=== PATIENT | female | born 1965 | race Caucasian/White ===

== ENCOUNTER 2016-10-18 07:00 | Day surgery (SDC) | payer OTHER ==
[~2016-10-18] VITALS: Ht 172.7 cm; Wt 109.3 kg
[~2016-10-18 07:00] MED LIST: COMPLETE ALLERG25 MG PO; EXCEDRIN EXTRA1 EAC1 PO; IBUPROFEN200 M1 PO; PHENTERMINE H37.5 MG PO; RANITIDINE HCL150 M1 PO; VICKS NYQUIL C236 ML PO
--- NOTE | 2016-10-18 10:12 | NUR ---
10/18/16 1012 Sulema Drosey 1006 PATIENT ARRIVES TO PACU AWAKE, BUT DROWSY. RESP EVEN AND UNLABORED. MASK AT 6 LITERS.
--- NOTE | 2016-10-18 10:39 | NUR ---
PT IS BACK TO DS FROM PACU. PT HAS NO C/O'S OF PAIN OR NAUSEA. WATER, POP, AND CRACKERS ARE PROVIDED AND AT THE BEDSIDE, SHE IS EATING AND TOLERATING SIPS OF FLUID WELL. CALL LIGHT IS WITHIN REACH. WILL REASSESS WITHIN THE HOUR. NO OTHER C/O'S AT THIS TIME.
[2016-10-18] MEDS ORDERED: NORCO 5-325 TA1 EACH PO (10:50)
[2016-10-18] MEDS ORDERED: IBUPROFEN800 MG PO (10:51)
--- NOTE | 2016-10-18 12:50 | NUR ---
LE 1140: PT UP TO BATHROOM AND ABLE URINATE 400ML OF RED URINE WITH A BLOOD CLOT IN THE HAT.
--- NOTE | 2016-10-18 14:05 | NUR ---
PT RESTING IN BED, ALERT AD ORIENTED. SHE SEEMED PREPARED, HAD FEW QUESTIONS, JUST WAS READY TO HAVE PROCEDURE OVER WITH. DAVE WILL COME TO PICK HER UP. PT REQUESTED PRAYER, WILL FOLLOW NEEDED
--- NOTE | 2016-11-14 12:25 | OR ---
[facility] [address] [place] [id number] Signed DATE OF SERVICE: 10/18/2016 PREOPERATIVE DIAGNOSES: Abnormal uterine bleeding. Fibroid uterus. Endometrial polyp. Perimenopause. POSTOPERATIVE DIAGNOSES: Abnormal uterine bleeding. Submucous fibroid. Endometrial polyps. Perimenopause. PROCEDURES PERFORMED: Hysteroscopic myomectomy. Hysteroscopic polypectomy. Dilation and curettage. SURGEON: Yasmin Penaloza DO. ANESTHESIA: General. ESTIMATED BLOOD LOSS: 30 mL. SPECIMENS: Endometrial curettings of a submucosal fibroid and polyp. FINDINGS: Normal external genitalia. Enlarged cervix with nabothian cyst and descensus to 1 cm above the introitus. Thickened appearing endometrium with endometrial polyp and submucosal fibroid noted on the left posterior wall of the uterus. The patient states that she had been previously diagnosed with a uterine septum. There does not appear to be a significant septum on exam today. Submucosal fibroid does appear to be resected in total. COMPLICATIONS: None. INDICATION: Ms. DelC id is a pleasant 51-year-old, G2, P2-0-0-3, white perimenopausal female who Electronically Signed By: YASMIN PENALOZA DO 11/14/16 1225 PATIENT NAME: CHRISTINA DEL CID OPERATIVE REPORT DATE OF : 63 PHYSICIAN: YASMIN PENALOZA DO REPORT #: [id number] REPORT IS CONFIDENTIAL AND NOT TO BE RELEASED WITHOUT AUTHORIZATION [facility] [address] [facility] [place] [place] [address] Signed presents with abnormal uterine bleeding. She also had an episode of pain. Ultrasound was performed that demonstrated a 14-cm retroflexed uterus with multiple fibroids and thickened endometrium suggestive of intracavitary polyps and fibroid. Pain is most consistent with a degenerating fibroid. The patient was consented for hysteroscopy, D and C, and possible polypectomy with possible myomectomy. Risks, benefits, and alternatives discussed in detail with the patient. The patient understands and wished to proceed with the procedure. TECHNIQUE: The patient was taken to the operating room. Time-out was performed confirming correct patient, correct procedure. General anesthesia was adequately established. The patient was prepped and draped in the dorsal lithotomy position with feet in Yellofin stirrups. ICPs were on and running and no preop antibiotics or heparin were indicated per skip protocol. A weighted speculum was placed in the vagina and the anterior lip of the cervix was grasped with a single-tooth tenaculum. The cervix was gently dilated using Hegar dilators. The cervix was noted to be enlarged with nabothian cyst and descensus was noted to approximately 1 cm above the introitus. After dilation, operative hysteroscope was placed into the cervical os and advanced under direct visualization into the uterine cavity. This was gently advanced until the fundus was noted. The patient was currently on her menstrual cycle and moderate amount of clot was noted in the uterine cavity. This was gently cleared with hysteroscopic fluid until good visualization of the cavity was obtained. Bilateral tubal ostia were identified and multiple small endometrial polyps with thickened endometrium were noted. Polypectomy was then performed with a MyoSure Lite device and e n dometrial curettings were also obtained. On the posterior wall of the uterus just left of midline, a submucosal fibroid was noted and this was resected apparently in total. Approximate diameter of this fibroid was 1.5-2 cm. The remainder of the endometrium was resected and the uterine cavity appears normal. The hysteroscope was withdrawn and deficit was noted at 1035 mL. Single-tooth tenaculum was removed and a small amount of bleeding was noted from the tenaculum site. This was made hemostatic with 2 fvsqri-yw-jaucup of 0 chromic. Good hemostasis was achieved and the patient was taken to the PACU in good and stable condition. Sponge, needle, and instrument count was correct x2 at the end of the procedure. Yasmin Penaloza DO JDW/Modl Electronically Signed By: YASMIN PENALOZA DO 11/14/16 1225 PATIENT NAME: CHRISTINA DEL CID OPERATIVE REPORT DATE OF : 63 PHYSICIAN: YASMIN PENALOZA DO REPORT #: [id number] REPORT IS CONFIDENTIAL AND NOT TO BE RELEASED WITHOUT AUTHORIZATION [address] [place] [address] Signed /[id number] Electronically Signed By: YASMIN PENALOZA DO 11/14/16 1225 PATIENT NAME: NEHEMIASCHRISTINA OPERATIVE REPORT DATE OF : 63 PHYSICIAN: YASMIN PENALOZA DO REPORT #: [id number] REPORT IS CONFIDENTIAL AND NOT TO BE RELEASED WITHOUT AUTHORIZATION
== END 2016-10-18 11:50 | disposition home or self-care (01) ==
LOC: DS 07:00
PROVIDERS: Obstetrics & Gynecology
PROC: 0UDB8ZX Extraction of Endometrium, Via Natural or Artificial Opening Endoscopic, Diagnostic (ICD-10-PCS; principal; 2016-10-18 08:30)
PROC: 0UB98ZZ Excision of Uterus, Via Natural or Artificial Opening Endoscopic (ICD-10-PCS; 2016-10-18 08:30)
DX: D25.0 Submucous leiomyoma of uterus (principal); N84.0 Polyp of corpus uteri; D64.9 Anemia, unspecified; J30.2 Other seasonal allergic rhinitis; Z98.890 Other specified postprocedural states
CPT/HCPCS: 00952; J1885; J2405; J2704; J3010; J7120

== ENCOUNTER 2018-09-04 07:10 | Day surgery (SDC) | payer OTHER ==
[~2018-09-04] VITALS: Ht 172.7 cm; Wt 111.1 kg
[~2018-09-04 07:10] MED LIST changes: +IBUPROFEN800 MG PO; +NORCO 5-325 TA1 EACH PO; +PROTONIX20 MG PO
[2018-09-04] MEDS ORDERED: Z-SLEEP25 MG PO (07:29)
--- NOTE | 2018-09-04 09:30 | NUR ---
HAS RETURNED FROM XRAY. IV RECONNECTED AND RUNS WELL. WARM BLANKET ON AND HAS BEEN TO BR.
--- NOTE | 2018-09-04 12:56 | NUR ---
09/04/18 1256 Sheets,Sadny 1250 PT ARRIVED TO PACU ON 8L VIA MASK, ORAL AIRWAY IN PLACE AND RESP EVEN AND UNLABORED. 1251 PT WOKE AND REACHED FOR HER FACE, PT ABLE TO FOLLOW COMMANDS AND ORAL AIRWAY IS REMOVED. PT REORIENTED TO PACU AND PT DENIES PAIN. PT BACK TO SLEEP.
[2018-09-04] MEDS ORDERED: OXYCODON-ACETA1 EAC2 PO (13:11)
[2018-09-04] MEDS ORDERED: IBUPROFEN600 MG PO (13:11)
[2018-09-04] MEDS ORDERED: TYLENOL325 MG PO (13:12)
--- NOTE | 2018-09-04 14:07 | NUR ---
PATIENT BACK IN DAY SURGERY ROOM FROM PACU. C/O PAIN 08/18. GIVEN PUDDING TO EAT. MEDICATED FOR PAIN WITH PO PERCOCET. VS CHECKED. LEFT BREAST/AXILLA DRESSING CDI. JAYLA DRAIN IN PLACE AND PATENT. IV SITE WNL. SCDs ON. ICE WATER PLACED AT BEDSIDE. CALL LIGHT WITHIN REACH.
--- NOTE | 2018-09-04 16:23 | NUR ---
1605: DR. WEST NOTIFIED OF JAYLA DRAIN OUTPUT. PATIENT EDUCATED ON HOW TO STRIP JAYLA DRAIN TUBING. 1615: PATIENT DISCHARGED TO HOME VIA WHEELCHAIR WITH .
--- NOTE | 2018-09-05 15:35 | OR ---
[facility] [address] [place], [place] [address] Signed DATE OF OPERATION: 09/04/2018 SURGEON: Allen West MD PREOPERATIVE DIAGNOSES: 1. Left upper outer quadrant infiltrating ductal breast carcinoma. 2. Increased radionuclide uptake inferior to the areolar margin, left side in addition to left axilla. POSTOPERATIVE DIAGNOSES: 1. Upper outer quadrant infiltrating ductal breast carcinoma, completely excised, clinically negative margin. 2. Positive axillary sentinel lymph nodes. 3. Minimal true uptake of parenchyma of left breast 6 o'clock position. PROCEDURES PERFORMED: 1. Injection of methylene blue for sentinel lymph node identification. 2. Left breast soft tissue mass excision for positive radionuclide uptake. 3. Left deep axillary sentinel lymph node biopsy. 4. Left partial mastectomy. 5. Left completion axillary dissection for frozen pathology positive metastatic disease to the left axilla. ANESTHESIA: General LMA; James Pruitt CRNA. INDICATION: This 53-year-old woman is a patient of Dr. Yasmin Penaloza and Dr. Kindra Gil. She has family history of breast cancer in her mother at the same age. She recently was noted to have a palpable mass in the upper outer aspect of the left breast. She had undergone a mammogram a year before in [place], which was normal. Review shows it to have been negative also. A repeat mammogram in this year showed an abnormality concordant to the palpable breast mass, which was not present a year ago either. Biopsy confirmed infiltrating ductal breast carcinoma. Ultrasound showed some suspicion of positive lymph node of axilla. She is admitted at this time to undergo left sentinel lymph node biopsy and partial mastectomy for a primary cancer. She understands that if frozen pathology confirms malignancy of axillary lymph nodes, completion axillary dissection will be undertaken. Additionally, there was significant uptake inferior to the central portion of the left Electronically Signed By: ALLEN WEST MD 09/05/18 1535 PATIENT NAME: CHRISTINA DEL CID OPERATIVE REPORT DATE OF : 63 REPORT #: [id number] PHYSICIAN: ALLEN WEST MD PCP: KENNEDI ARGUELLO DO REPORT IS CONFIDENTIAL AND NOT TO BE RELEASED WITHOUT AUTHORIZATION [facility] [address] [place], [place] [address] Signed areola a rather atypical finding, for which additional excision would be undertaken on the possibility of an intramammary lymph node. The patient understands well the risks of bleeding, infection, cosmetic deformity, already agreed upon, plan for radiation therapy to the remaining breast, possible need for chemotherapy depending on axillary lymph node status, as well as the less likely possibility of arm edema or other problems. She understands that and she wished to proceed. FINDINGS: Good uptake was noted by radionuclide injection to the left axilla. There was a hot spot inferior to the left areola not concordant to the areolar injection site itself. Excision of that tissue did show radionuclide uptake, but no obvious abnormality otherwise. There was no methylene blue uptake there. As regard to the sentinel lymph nodes, there were palpably suspicious nodes and one sentinel lymph node and another non-sentinel node were sent for initial pathology confirming infiltrating ductal carcinoma and a non-sentinel node. An additional large grossly positive and radionuclide and methylene blue dye avid lymph node was also noted. Completion of axillary dissection was undertaken. A level 3 lymphadenectomy was accomplished. There were no complications. DESCRIPTION OF PROCEDURE: The patient was brought to the operating room, given a general LMA type anesthetic. Preoperative antibiotic Ancef was given. Sequential compression device stockings were used and heparin subcutaneously administered. The patient had been received from radiology suite having undergone sentinel lymph node injection with radionuclide. After satisfactory general anesthesia, injection of 1 mL of methylene blue dye in the subepithelial area in the right upper outer aspect surrounding the upper outer aspect of the left areola was undertaken. Interrogation of the breast with the C-Trak Gamma Probe showed uptake in the axilla as would be expected, but also inferior to the left areola as noted by the radiologist. The breast was prepared with a chlorhexidine solution and draped sterilely. Using the gamma probe as a guide, a transverse incision was made inferior to the areolar margin. Dissection was carried through the subcutaneous tissue. There was no significant blue lymphatic uptake, although there were a few, but no sign of large dominant lymph node. Resection of this soft tissue of the breast mostly breast parenchyma corresponding to the avid uptake was undertaken. Re-evaluation of the cavity showed no additional radioactivity. Careful inspection and manipulation of the excised tissue did not readily identify an obvious lymph node though there may be a small lymph node there after all. The wound was irrigated and assured for hemostasis and closed with interrupted 2-0 Vicryl and running subcuticular 3-0 Vicryl for the skin. The area Electronically Signed By: ALLEN WEST MD 09/05/18 1535 PATIENT NAME: CHRISTINA DEL CID OPERATIVE REPORT DATE OF : 63 REPORT #: [id number] PHYSICIAN: ALLEN WEST MD PCP: KENNEDI ARGUELLO DO REPORT IS CONFIDENTIAL AND NOT TO BE RELEASED WITHOUT AUTHORIZATION [address] [address] Signed was isolated from the remaining operation. Interrogation of the left axilla with the gamma probe was undertaken identifying the area of maximal uptake. A transverse incision was made. Dissection carried through the subcutaneous tissue with electrocautery. Using blunt electrocautery dissection triangle. The area was dissected free more fully. Small blood vessels encountered were clipped. There were with sips of methylene blue dye throughout the area corresponding to what appeared to be sentinel lymph nodes. Palpation of the index finger revealed several nodes that were clinically highly suspicious. There were no hard but firm and round. A sentinel node and subsequently a non sentinel lymph node were passed for pathology. Further dissection showed much larger two and half to 3 cm lymph node with avid uptake of radionuclide and blue dye. By this point, the radiologist confirmed a finding of metastatic breast cancer to the non sentinel lymph node. No further sentinel lymph nodes were sent or requested at that point. The wound was packed with gauze and plans made for excision of the primary tumor. The primary tumor was in the upper outer aspect relatively high and lateral, not that far from the axilla itself. This easily palpated. An incision was made directly over it. Dissection carried through the dermis with electrocautery using blunt electrocautery dissection. Wide resection was undertaken. A specimen at least 8 cm in diameter was excised with clinically negative margins. Margins extended down to the pectoralis fascia in the lateral aspect. The specimen was marked and oriented before being sent for permanent pathology. Hemostasis was assured with electrocautery. That wound was then packed and re-examination axilla undertaken. The left axillary incision was then extended and complete formal axillary dissection undertaken given the positive sentinel lymph nodes and additional palpable suspicious nodes of the left axilla. The left axillary vein was identified as were surrounding structures including the thoracodorsal long thoracic nerves and the axillary fatty tissue and lymph nodes dissected free in a standard way allowing for a level three axillary dissection. Multiple clips were applied as necessary. Intercostal brachial neurovascular bundles were clipped and divided as it could not be manipulated from the axillary contents in a reasonable way. A stab wound was made inferiorly allowing for placement of 7 mm Ad drain. Irrigation was undertaken with sterile water for its tumor lytic effect. Hemostasis assured with electrocautery. The drain was trimmed to the appropriate length and secured with nylon suture. Multiple lymph nodes of the left axilla were excised. Evaluation of the gamma probe showed only one of them to be a sentinel lymph node and number of others not sentinel in nature. The left axillary wound was closed with interrupted 2-0 Vicryl and a running subcuticular 3-0 Vicryl. Removal of gauze from the partial mastectomy site was undertaken. There was continuity between the biopsy or mastectomy cavity and the axilla to some degree. That wound was closed with interrupted 2-0 Vicryl and the parenchyma was then reapproximated with interrupted 2-0 Vicryl. The patient has very large breasts and there is certainly redundant tissue to allow for closure of the biopsy cavity. The biopsy cavity was closed with interrupted 2-0 Vicryl, Electronically Signed By: ALLEN WEST MD 09/05/18 1535 PATIENT NAME: CHRISTINA DEL CID OPERATIVE REPORT DATE OF : 63 REPORT #: [id number] PHYSICIAN: ALLEN WEST MD PCP: KENNEDI ARGUELLO DO REPORT IS CONFIDENTIAL AND NOT TO BE RELEASED WITHOUT AUTHORIZATION [facility] [address] [place] [address] Signed ultimately skin closed in each wound with a running subcuticular 3-0 Vicryl. Steri-Strips were applied as was a Mepilex silver sponge dressing and an OpSite. The operation was rather prolonged, complicated, and difficult on the basis of these findings, her obesity and so forth lasting far longer than usual, probably 3 times. It was accomplished safely and without error however. MD AIME Chandler/ENEIDA /[id number] cc: DO Kindra Becerra MD Copies: YASMIN PENALOZA CYNTHIA SUE MD ~ Electronically Signed By: ALLEN WEST MD 09/05/18 1535 PATIENT NAME: CHRISTINA DEL CID OPERATIVE REPORT DATE OF : 63 REPORT #: [id number] PHYSICIAN: ALLEN WEST MD PCP: KENNEDI ARGUELLO DO REPORT IS CONFIDENTIAL AND NOT TO BE RELEASED WITHOUT AUTHORIZATION
== END 2018-09-04 16:15 | disposition home or self-care (01) ==
LOC: OPS 07:10 → DS 07:10 → NUC 08:30 → OPS 08:30 → EDSTATUS 08:30 → OPS 16:15
PROVIDERS: Surgery
PROC: 0HBU0ZZ Excision of Left Breast, Open Approach (ICD-10-PCS; principal; 2018-09-04 09:15)
PROC: 07B60ZZ Excision of Left Axillary Lymphatic, Open Approach (ICD-10-PCS; 2018-09-04 09:15)
DX: C50.412 Malignant neoplasm of upper-outer quadrant of left female breast (principal); C77.3 Secondary and unspecified malignant neoplasm of axilla and upper limb lymph nodes; K21.0 Gastro-esophageal reflux disease with esophagitis; E66.9 Obesity, unspecified; Z79.899 Other long term (current) drug therapy; Z80.3 Family history of malignant neoplasm of breast; Z79.82 Long term (current) use of aspirin; Z68.37 Body mass index [BMI] 37.0-37.9, adult
CPT/HCPCS: 00404; 78195; A9541; J0131; J0690; J1100; J1170; J1644; J1885; J2405; J2704; J3010; J7120

== ENCOUNTER 2020-02-11 13:46 | Emergency (ER) | payer OTHER ==
[~2020-02-11] VITALS: Ht 172.7 cm; Wt 108.0 kg
[~2020-02-11 13:46] MED LIST changes: +DOXYCYCLINE HY100 MG PO; +GABAPENTIN300 MG PO; +IBUPROFEN600 MG PO; +OMEPRAZOLE20 MG PO; +OXYCODON-ACETA1 EAC2 PO; +TYLENOL325 MG PO; +Z-SLEEP25 MG PO
[2020-02-11] MEDS ORDERED: [UNRECOGNIZED DRUG - OTHER] IV (14:23)
[2020-02-11] MEDS ORDERED: KEYTRUDA100 MG/4 M IV (14:24)
[2020-02-11] MEDS ORDERED: CARBOPLATIN150 MG IV (14:24)
== END 2020-02-12 00:55 | disposition home or self-care (01) ==
LOC: ED 13:46
DX: D64.9 Anemia, unspecified (principal); D69.6 Thrombocytopenia, unspecified; D72.819 Decreased white blood cell count, unspecified; C50.919 Malignant neoplasm of unspecified site of unspecified female breast; Z79.899 Other long term (current) drug therapy
CPT/HCPCS: 36430; 80048; 85025; 85049; 86850; 86900; 86901; 86920; 99284-25; P9035

== ENCOUNTER 2020-03-10 09:14 | Emergency (ER) | payer OTHER ==
[~2020-03-10] VITALS: Ht 172.7 cm; Wt 104.3 kg
[~2020-03-10 09:14] MED LIST changes: +CARBOPLATIN150 MG IV; +KEYTRUDA100 MG/4 M IV; +[UNRECOGNIZED DRUG - OTHER] IV
--- OUTSIDE RECORDS SUMMARY | 2020-03-10 09:16 | XMS ---
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 [facility] has no Care Guidelines for this patient. [facility] VISIT COUNT (12 MO.) 2 [facility] TOTAL 2 NOTE: Visits indicate total known visits. ED/C VISIT TRACKING (12 MO.) 03/10/2020 09:15 [facility] [place] TYPE: Emergency COMPLAINT: - ABNORMAL LAB RESULTS, WEAKNESS 02/11/2020 13:48 [facility] [place] TYPE: Emergency COMPLAINT: - ABNORMAL LAB RESULTS DIAGNOSES: - Malignant neoplasm of unspecified site of unspecified female breast - Thrombocytopenia, unspecified - Anemia, unspecified - Decreased white blood cell count, unspecified - Other residential (current) drug therapy INPATIENT VISIT TRACKING (12 MO.) No inpatient visits to display in this time frame [email or web address]
--- NOTE | 2020-03-10 19:29 | EKG ---
[facility] [address] [facility] [place], [place] [address] Signed Sinus tachycardia Otherwise normal ECG No previous ECGs available Confirmed by COLELTTE AVILA DO ([id number]) on 03/10/2020 7:29:35 PM Electronically Signed By: COLLETTE AVILA DO 03/10/20 1929 PATIENT NAME: CHRISTINA DEL CID Electrocardiogram DATE OF : 63 PHYSICIAN: COLLETTE AVILA DO REPORT #: [id number] REPORT IS CONFIDENTIAL AND NOT TO BE RELEASED WITHOUT AUTHORIZATION
== END 2020-03-10 20:09 | disposition home or self-care (01) ==
LOC: ED 09:14
DX: D64.9 Anemia, unspecified (principal); R09.02 Hypoxemia; C50.919 Malignant neoplasm of unspecified site of unspecified female breast; J90 Pleural effusion, not elsewhere classified; D69.6 Thrombocytopenia, unspecified; Z79.899 Other long term (current) drug therapy
CPT/HCPCS: 36430; 71260; 80053; 85025; 85379; 86850; 86900; 86901; 86920; 93005; 93010; 94761; 99285-25; P9016; Q9967